=== PATIENT | female | born 1975 | race Caucasian/White ===

== ENCOUNTER 2017-08-07 12:46 | Emergency (ER) | payer BC ==
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
[2017-08-07 13:50] LABS: ABS Basophils 0.1 10^3/ul (0-0.2); ABS Eosinophils 0.1 10^3/ul (0-0.6); ABS Lymphocytes 2.6 10^3/ul (1.0-4.8); ABS Monocytes 0.9 10^3/ul (0-0.8); ABS Neutrophils 8.5 10^3/ul (1.5-7.7); ABS Nucleated RBC 0 10^3/ul; Eosinophil % 1.2 % (0-6); Hematocrit 42 % (35-47); Hemoglobin 14.2 g/dl (12.0-16.0); Lymphocyte % 21.3 % (25-47); Mean Corpuscular HGB Conc 34 g/dl (31-36); Mean Corpuscular Hemoglobin 30 pg (27-31); Mean Corpuscular Volume 88 fL (80-97); Mean Platelet Volume 9 um3 (7.4-10.4); Nucleated Red Blood Cells % 0; Platelet Count 263 10^3/ul (150-450); Red Cell Distribution Width 13 % (10.5-15); White Blood Count 12.2 10^3/ul (3.5-10.8)
[2017-08-07 14:04] LABS: EGFR Non-African American 61.9 (>60)
[2017-08-07 14:16] LABS: INR 0.94 (0.77-1.02)
[2017-08-07] MEDS ORDERED: Iohexol 350* (CONTRAST) 500 ML MDV IV ONE (15:35)
--- NOTE | 2017-08-07 16:03 | RAD ---
INDICATION: Chest pain. Short of breath. Evaluate for pulmonary embolus. COMPARISON: None TECHNIQUE: Axial source images were obtained from the thoracic inlet to the hemidiaphragms following administration of [address] angiographic technique was utilized. Coronal and sagittal reconstructed images were acquired. CHEST FINDINGS: Neck/thyroid: The visualized neck to include the thyroid appear normal. Chest wall: There are no acute abnormalities of the bony thorax or chest wall. There is no supraclavicular, infraclavicular, or axillary lymphadenopathy. Lungs : There are no pulmonary parenchymal masses or infiltrates. The pulmonary interstitium appears normal. There are no endobronchial lesions. Cardiomediastinal structures: There is no CT evidence of acute pulmonary embolic disease. The heart is normal in size. There is no pericardial effusion. There is no evidence of aortic aneurysm or dissection. There is no mediastinal or hilar adenopathy. The esophagus appears normal. Pleura : There are no pleural-based masses or effusions. Other: None. IMPRESSION: NO CT EVIDENCE OF ACUTE PULMONARY EMBOLIC DISEASE. LUNGS CLEAR.
[2017-08-07 18:32] VITALS: BP 132/84
--- NOTE | 2017-08-14 15:48 | ED ---
Wale Franco Nilda, scribed for Gavino Garcia MD on 08/07/17 at 1324 . Shortness of Breath - HPI Summary HPI Summary: This patient is a 41 year old F [facility] by with a chief complaint of sudden onset constant mild SOB (described as "shallow breathing") while at rest last night. This morning breathing issues continued. Pt visited [facility] at 1000, where labs showed elevated D- dimer (800). Pt states she feels functional. She rates the pain 0/10 in severity. Symptoms aggravated and alleviated by nothing. Patient reports having "shuddery feeling when taking a breath." Patient denies fever, diaphoresis, epistaxis, and chills. Pt denies prolonged recent travel of over an hour and recent sickness. Medications include treatment for dry eye and vitamins. 2 months ago pt had sciatica flare that has mostly resolved following PT. Pt states she also twisted ankle but no longer feels pain from injury. Otherwise, pt denies recent trauma. She is unsure if PMHx of clotting issues. Pt not currently on period and is a non-smoker. - History of Current Complaint Chief Complaint: EDShortnessOfBreath Time Seen by Provider: 08/07/17 13:01 Hx Obtained From: Patient Onset/Duration: Sudden Onset, Lasting Days - yesterday, Still Present Timing: Constant Current Severity: Mild Dyspnea At: Rest Aggrevating Factors: Nothing Alleviating Factors: Nothing Associated Signs & Symptoms: Negative - Allergy/Home Medications Allergies/Adverse Reactions: Allergies Allergy/AdvReac Type Severity Reaction Status Date / Time No Known Allergies Allergy Verified 11/16/15 18:43 Home Medications: Home Medications Albuterol inh POWDER (NF) [Proair Respiclick] 1 puff INH Q6HR PRN 08/07/17 [ History Confirmed 08/07/17] Fluticasone HFA 110 mcg(NF) [Flovent HFA 110 mcg(NF)] 1 puff INH BID 08/07/17 [ History Confirmed 08/07/17] Lifitegrast [Xiidra] 5 % OPHTHALMIC DAILY 08/07/17 [History Confirmed 08/07/17] PMH/Surg Hx/FS Hx/Imm Hx Endocrine/Hematology History: Denies: Hx Diabetes, Hx Thyroid Disease Cardiovascular History: Denies: Hx Hypertension Respiratory History: Denies: Hx Asthma, Hx Chronic Obstructive Pulmonary Disease (COPD) GI History: Denies: Hx Ulcer Musculoskeletal History: Reports: Other Musculoskeletal History - Sciatica - Cancer History Hx Chemotherapy: No Hx Radiation Therapy: No Infectious Disease History: No Infectious Disease History: Denies: Hx Clostridium Difficile, Hx Hepatitis, Hx Human Immunodeficiency Virus (HIV), Hx Shingles, Hx Tuberculosis, Hx Known/Suspected VRE, Hx Known/ Suspected VRSA, History Other Infectious Disease, Traveled Outside the [place] in Last 30 Days - Family History Known Family History: Positive: Respiratory Disease - PE - Social History Lives: With Family Alcohol Use: Rare Substance Use Type: Reports: None Smoking Status (MU): Never Smoked Tobacco Review of Systems Negative: Fever, Chills, Skin Diaphoresis Negative: Erythema Negative: Epistaxis, Sore Throat Negative: Chest Pain Positive: Shortness Of Breath. Negative: Cough Negative: Abdominal Pain, Vomiting, Nausea Negative: dysuria, hematuria Negative: Myalgia, Edema Negative: Rash Neurological: Other - negative dizziness All Other Systems Reviewed And Are Negative: Yes Physical Exam - Summary Physical Exam Summary: Constitutional: Well-developed, Well-nourished, Alert. (-) Distressed Skin: Warm, Dry HENT: Normocephalic; Atraumatic Eyes: Conjunctiva normal Neck: Musculoskeletal ROM normal neck. (-) JVD, (-) Stridor, (-) Tracheal deviation Cardio: Rhythm regular, rate normal, Heart sounds normal; Intact distal pulses; The pedal pulses are 2+ and symmetric. Radial pulses are 2+ and symmetric. (-) Murmur Pulmonary/Chest wall: Effort normal. (-) Respiratory distress, (-) Wheezes, (-) Rales Abd: Soft, (-) Tenderness, (-) Distension, (-) Guarding, (-) Rebound Musculoskeletal: (-) Edema Lymph: (-) Cervical adenopathy Neuro: Alert, Oriented x3 Psych: Mood and affect Normal Triage Information Reviewed: Yes Vital Signs On Initial Exam: Initial Vitals Temp Pulse Resp BP Pulse Ox 99.4 F 84 20 168/91 97 08/07/17 12:57 08/07/17 12:57 08/07/17 12:57 08/07/17 12:57 08/07/17 12:57 Vital Signs Reviewed: Yes Diagnostics - Vital Signs Vital Signs Temp Pulse Resp BP Pulse Ox 08/07/17 12:57 99.4 F 84 20 168/91 97 - Laboratory Result Diagrams: 08/07/17 13:30 08/07/17 13:30 Lab Statement: Any lab studies that have been ordered have been reviewed, and results considered in the medical decision making process. - CT CTA chest CT Interpretation Completed By: Radiologist - CTA chest, per radiologist, reveals no CT evidence of acute pulmonary embolic disease. Lungs clear. Dr. Garcia has reviewed this radiology report. - EKG 1315 Cardiac Rate: NL EKG Rhythm: Sinus Rhythm - 81 bpm EKG Interpretation: no STEMI Re-Evaluation - Re-Evaluation First Eval Re-Evaluation Time: 16:30 Comment: Pt has no complaints. ED physician reviewed labs and imaging results with pt. Course/Dx - Course Assessment/Plan: This patient is a 41 year old F presenting to [facility] accompanied by with a chief complaint of sudden onset constant mild SOB (shallow breathing) at rest since last night, which made her anxious. This morning breathing issues continued. Pt visited [facility] at 1000, where labs showed elevated D-dimer (800). Pt states she feels functional. The patient rates the pain 0/10 in severity. Symptoms aggravated and alleviated by nothing. Patient reports having, shuddery feeling when taking a breath. Patient denies fever, diaphoresis, epistaxis, and chills. Pt denies prolonged recent travel of over an hour and recent sickness. Medications include treatment for dry eye and vitamins. 2 months ago pt had sciatica flare that has mostly resolved following PT. Pt states she also twisted ankle last month, but no longer feels pain from injury. She is unsure if PMHx of clotting issues. Pt not currently on period and is a non-smoker. Pending labs, EKG, CTA Chest. An EKG reveals NSR, 81 bpm, no STEMI. CTA chest, per radiologist, reveals no CT evidence of acute pulmonary embolic disease. Lungs clear. Dr. Garcia has reviewed this radiology report. Two troponins are negative. CTA of chest negative for PE. No respiratory distress. Tolerated ambulation. No desaturatoins. Possibility of panic attack was discussed with pt. Pt advised to follow up with PCP within 48 hours. Pt is stable and will be D/C with Dx of SOB. Pt understands and is agreeable with plan. - Diagnoses Provider Diagnoses: SOB (shortness of breath) Discharge - Discharge Plan Condition: Stable Disposition: HOME Patient Education Materials: Dyspnea (ED) Referrals: Roselyn Villa MD [Primary Care Provider] - 2 Days Additional Instructions: RETURN TO THE EMERGENCY DEPARTMENT FOR CHANGING OR WORSENING SYMPTOMS. The documentation as recorded by the Wale alicia Nilda accurately reflects the service I personally performed and the decisions made by , Gavino Garcia MD.
== END 2017-08-07 18:35 | disposition home or self-care (01) ==
LOC: ED 12:46
DX: R06.02 Shortness of breath (principal)
CPT/HCPCS: 36415; 71275; 80053; 83605; 84484; 85025; 85610; 85730; 93005; 99283; Q9967